=== PATIENT | male | born 1990 | race Caucasian/White ===

== ENCOUNTER → 2019-07-09 | Outpatient (CLI) | payer SELFPAY ==
--- NOTE | 2019-07-09 13:10 | PCVCIMAG ---
APPROVED REPORT Study performed: 07/09/2019 10:54:50 EXAM: Comprehensive 2D, Doppler, and color-flow Echocardiogram Patient Location: Echo lab Status: routine BSA: 1.94 HR: 82 bpmBP: 124/82 mmHg Rhythm: NSR Other Information Study Quality: Adequate Indications Bicuspid aortic valve, history of ablation for SVT 2D Dimensions IVSd: 9.15 (7-11mm)LVOT Diam: 22.39 (18-24mm) LVDd: 37.13 mm PWd: 9.60 (7-11mm)Ascending Ao: 35.80 (22-36mm) LVDs: 25.03 (25-40mm) Left Atrium: 32.39 (27-40mm) Aortic Root: 36.06 mm LV Single Plane 4CH: 57.40 % LV Single Plane 2CH: 64.33 % Biplane EF: 61.1 % Volumes Left Atrial Volume (Systole) Single Plane 4CH: 39.98 mLSingle Plane 2CH: 43.93 mL LA ESV Index: 23.00 mL/m2 Aortic Valve AoV Peak Arvind.: 1.55 m/s AO Peak Gr.: 9.59 mmHgLVOT Max P.25 mmHg AO Mean Gr.: 4.82 mmHgLVOT Mean P.46 mmHg AO V2 Mean: 1.03 m/sLVOT Max V: 1.25 m/s AO V2 VTI: 29.50 cmLVOT Mean V: 0.87 m/s [place] (VTI): 3.44 [id number] V1 VTI: 25.79 cm AMERICA Vmax: 3.18 cm2 SV (LVOT): 101.51 mL Mitral Valve E/A Ratio: 1.4 MV Decel. Time: 234.40 ms MV E Max Arvind.: 0.80 m/s MV A Arvind.: 0.59 m/s IVRT: 79.58 ms Pulmonary Valve PV Peak Arvind.: 0.89 m/sPV Peak Gr.: 3.18 mmHg Pulmonary Vein P Vein S: 0.28 m/sP Vein A: 0.33 m/s P Vein D: 0.52 m/sP Vein A Dur.: 141.9 msec P Vein S/D Ratio: 0.54 Tricuspid Valve TR Peak Arvind.: 2.70 m/s TR Peak Gr.: 29.16 mmHg Left Ventricle The left ventricle is normal size. There is normal LV segmental wall motion. There is normal left ventricular wall thickness. Left ventricular systolic function is normal. The left ventricular ejection fraction is within the normal range. LVEF is 60-65%. The left ventricular diastolic function is normal. Right Ventricle The right ventricle is normal size. The right ventricular systolic function is normal. Atria The left atrium size is normal. The right atrium size is normal. Aortic Valve The aortic valve is bicuspid. Mild aortic regurgitation. There is no aortic valvular stenosis. Calculated aortic valve area is 3 cm2 with maximum pressure gradient of 10 mmHg and mean pressure gradient of 5 mmHg. Mitral Valve The mitral valve is normal in structure. There is no mitral valve regurgitation noted. No evidence of mitral valve stenosis. Tricuspid Valve The tricuspid valve is normal in structure. Mild tricuspid regurgitation with PAP of 36 mmHg. Pulmonic Valve The pulmonary valve is normal in structure. There is no pulmonic valvular regurgitation. Great Vessels The aortic root is normal in size. IVC is normal in size and collapses >50% with inspiration. Pericardium There is no pericardial effusion. There is no pleural effusion. <Conclusion> The left ventricle is normal size. LVEF is 60-65%. The aortic valve is bicuspid. Mild aortic regurgitation. There is no aortic valvular stenosis. Calculated aortic valve area is 3 cm2 with maximum pressure gradient of 10 mmHg and mean pressure gradient of 5 mmHg. The mitral valve is normal in structure. The tricuspid valve is normal in structure. Mild tricuspid regurgitation with PAP of 36 mmHg. The pulmonary valve is normal in structure. There is no pericardial effusion.
== END | disposition home or self-care (01) ==
LOC: PCVCIMAG 11:03
PROVIDERS: ATTEND Family Medicine
DX: I08.2 Rheumatic disorders of both aortic and tricuspid valves (principal)
CPT/HCPCS: 93306